=== PATIENT | female | born 1960 | race African-American/Black ===

== ENCOUNTER 2016-08-31 10:29 | Emergency (ER) | payer SELFPAY ==
[2016-08-31 10:52] VITALS: BP 172/104
[2016-08-31] MEDS ORDERED: IBUPROFEN 800 MG TABLET PO ONE (10:55)
--- NOTE | 2016-08-31 10:55 | ER Document Report ---
ED Medical Screen (RME) - General Stated Complaint: RIGHT LEG PAIN Notes: Patient thinks she pulled a muscle in her posterior right thigh on August 09. It is still bothering her. Pain radiates to her right hip and groin. I have greeted and performed a rapid initial assessment of this patient. A comprehensive ED assessment and evaluation of the patient, analysis of test results and completion of the medical decision making process will be conducted by additional ED providers. TRAVEL OUTSIDE OF THE [place] IN LAST 30 DAYS: No - Related Data Allergies/Adverse Reactions: No Known Allergies Allergy (Verified 08/31/16 10:52) Past Medical History - Past Medical History Cardiac Medical History: Reports: Hx Hypercholesterolemia, Hx Hypertension Past Surgical History: Reports: Hx Section - 3 - Immunizations Hx Diphtheria, Pertussis, Tetanus Vaccination: No Physical Exam - Vital signs Vitals: Temp Pulse Resp BP Pulse Ox 98.4 F 61 18 172/104 H 100 08/31/16 10:50 08/31/16 10:50 08/31/16 10:50 08/31/16 10:50 08/31/16 10:50 - Back Notes: No pain with palpation, but pain reproduced with squatting. Patient ambulates with limp. Course - Vital Signs Vital signs: Temp Pulse Resp BP Pulse Ox 98.4 F 61 18 172/104 H 100 08/31/16 10:50 08/31/16 10:50 08/31/16 10:50 08/31/16 10:50 08/31/16 10:50
--- NOTE | 2016-08-31 12:33 | ER Document Report ---
ED General - General Chief Complaint: Leg Pain Stated Complaint: RIGHT LEG PAIN Mode of Arrival: Ambulatory Information source: Patient Notes: 56-year-old female presents with complaints of right hip pain pain down to the right knee. Patient notes she lifts heavy objects, noticed the pain only occurs after she is working, when she is at rest her symptoms resolved. Patient denies any DVT PE risk factors denies any chest pain shortness breath difficulty breathing. TRAVEL OUTSIDE OF THE [place] 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 Onset/Duration: Persistent Quality of pain: Achy Severity: Mild Pain Level: 1 Associated symptoms: Body/muscle aches Exacerbated by: Denies Relieved by: Denies Similar symptoms previously: No Recently seen / treated by doctor: No - Related Data Allergies/Adverse Reactions: No Known Allergies Allergy (Verified 08/31/16 10:52) Past Medical History - Social History Smoking Status: Never Smoker Cigarette use (# per day): Yes Chew tobacco use (# tins/day): Yes - snuff Smoking Education Provided: No Frequency of alcohol use: Social Drug Abuse: None Family History: None Patient has suicidal ideation: No Patient has homicidal ideation: No - Past Medical History Cardiac Medical History: Reports: Hx Hypercholesterolemia, Hx Hypertension Renal/ Medical History: Denies: Hx Peritoneal Dialysis Past Surgical History: Reports: Hx Section - 3 - Immunizations Hx Diphtheria, Pertussis, Tetanus Vaccination: No Review of Systems - Review of Systems Notes: REVIEW OF SYSTEMS: CONSTITUTIONAL : Denies fever, chills, or sweats. Denies recent illness. EENT: Denies eye, ear, throat, or mouth pain or symptoms. Denies nasal or sinus congestion or discharge. Denies throat, tongue, or mouth swelling or difficulty swallowing. CARDIOVASCULAR: Denies chest pain. Denies palpitations or racing or irregular heart beat. Denies ankle edema. RESPIRATORY: Denies cough, cold, or chest congestion. Denies shortness of breath, difficulty breathing, or wheezing. GASTROINTESTINAL: Denies abdominal pain or distention. Denies nausea, vomiting , or diarrhea. Denies blood in vomitus, stools, or per rectum. Denies black, tarry stools. Denies constipation. GENITOURINARY: Denies difficulty urinating, painful urination, burning, frequency, blood in urine, or discharge. FEMALE GENITOURINARY: Denies vaginal bleeding, heavy or abnormal periods, irregular periods. Denies vaginal discharge or odor. MUSCULOSKELETAL: Right hip pain and achiness SKIN: Denies rash, lesions or sores. HEMATOLOGIC : Denies easy bruising or bleeding. LYMPHATIC: Denies swollen, enlarged glands. NEUROLOGICAL: Denies confusion or altered mental status. Denies passing out or loss of consciousness. Denies dizziness or lightheadedness. Denies headache. Denies weakness or paralysis or loss of use of either side. Denies problems with gait or speech. Denies sensory loss, numbness, or tingling. Denies seizures. PSYCHIATRIC: Denies anxiety or stress. Denies depression, suicidal ideation, or homicidal ideation. ALL OTHER SYSTEMS REVIEWED AND NEGATIVE. Dictation was performed using [employer] voice recognition software PHYSICAL EXAMINATION: GENERAL: Well-appearing, well-nourished and in no acute distress. HEAD: Atraumatic, normocephalic. EYES: Pupils equal round and reactive to light, extraocular movements intact, conjunctiva are normal. ENT: Nares patent, oropharynx clear without exudates. Moist mucous membranes. NECK: Normal range of motion, supple without lymphadenopathy LUNGS: Breath sounds clear to auscultation bilaterally and equal. No wheezes rales or rhonchi. HEART: Regular rate and rhythm without murmurs ABDOMEN: Soft, nontender, nondistended abdomen. No guarding, no rebound. No masses appreciated. Female : deferred Musculoskeletal: Normal range of motion, no pitting or edema. No cyanosis. NEUROLOGICAL: Cranial nerves grossly intact. Normal speech, normal gait. Normal sensory, motor exams PSYCH: Normal mood, normal affect. SKIN: Warm, Dry, normal turgor, no rashes or lesions noted. Physical Exam - Vital signs Vitals: Temp Pulse Resp BP Pulse Ox 98.4 F 61 18 172/104 H 100 08/31/16 10:50 08/31/16 10:50 08/31/16 10:50 08/31/16 10:50 08/31/16 10:50 Course - Re-evaluation Re-evalutation: 08/31/16 12:31 Patient has no edema, notes the pain is on palpation. And movement. Patient will be treated with steroids and anti-inflammatories denies any medication reactions or concerns regarding side effects Otherwise patient looks well is in no distress After performing a Medical Screening Examination, I estimate there is LOW risk for EXPANDING OR RUPTURED ABDOMINAL AORTIC ANEURYSM, CAUDA EQUINA SYNDROME, EPIDURAL MASS LESION, or HERNIATED DISK CAUSING SEVERE SPINAL STENOSIS, thus I consider the discharge disposition reasonable. The patient and I have discussed the diagnosis and risks, and we agree with discharging home and close follow-up. We also discussed returning to the Emergency Department immediately if new or worsening symptoms occur with the understanding that symptoms and presentations can change. We have discussed the symptoms which are most concerning (e.g., saddle anesthesia, urinary or bowel incontinence or retention , changing or worsening pain) that necessitate immediate return. - Vital Signs Vital signs: Temp Pulse Resp BP Pulse Ox 98.4 F 61 18 172/104 H 100 08/31/16 10:50 08/31/16 10:50 08/31/16 10:50 08/31/16 10:50 08/31/16 10:50 Discharge - Discharge Clinical Impression: Right hip pain, muscle skeletal pain Condition: Stable Disposition: HOME, SELF-CARE Instructions: Myalagia (Muscle Pain) ([facility]) Prescriptions: Naproxen 500 mg PO BID #20 tablet Prednisone [Deltasone 20 mg Tablet] 3 tab PO DAILY 5 Days Forms: Return to Work Referrals: CORY WOOTEN MD [Primary Care Provider] - Follow up tomorrow
== END 2016-08-31 12:47 | disposition home or self-care (01) ==
LOC: ER 10:29
DX: M25.551 Pain in right hip (principal); Z72.0 Tobacco use; I10 Essential (primary) hypertension
CPT/HCPCS: 99283

== ENCOUNTER 2016-09-11 18:18 | Emergency (ER) | payer SELFPAY ==
--- NOTE | 2016-09-11 19:25 | ER Document Report ---
HPI - HPI Patient complains to provider of: left foot pain Onset: Yesterday Onset/Duration: Gradual Quality of pain: Throbbing Pain Level: 2 Context: 56-year-old female developed a spontaneous dorsal proximal foot pain when she walks. No injury. No swelling. Associated Symptoms: None Exacerbated by: Walking Relieved by: Denies Similar symptoms previously: No Recently seen / treated by doctor: No - ROS ROS below otherwise negative: Yes Systems Reviewed and Negative: Yes All other systems reviewed and negative - REPRODUCTIVE Reproductive: DENIES: : - DERM Skin Color: Normal Past Medical History - General Information source: Patient - Social History Smoking Status: Never Smoker Frequency of alcohol use: None Drug Abuse: None Lives with: Family Family History: None Patient has suicidal ideation: No Patient has homicidal ideation: No - Past Medical History Cardiac Medical History: Reports: Hx Hypercholesterolemia, Hx Hypertension Renal/ Medical History: Denies: Hx Peritoneal Dialysis Past Surgical History: Reports: Hx Section - 3 - Immunizations Hx Diphtheria, Pertussis, Tetanus Vaccination: No Vertical Provider Document - CONSTITUTIONAL Agree With Documented VS: Yes Exam Limitations: No Limitations - INFECTION CONTROL TRAVEL OUTSIDE OF THE [place] IN LAST 30 DAYS: No - HEENT HEENT: Normocephalic - NECK Neck: Supple - RESPIRATORY O2 Sat by Pulse Oximetry: 99 - MUSCULOSKELETAL/EXTREMETIES Musculoskeletal/Extremeties: MAEW, FROM, Non-Tender, No Edema. negative: Eccymosis - NEURO Level of Consciousness: Awake, Alert, Appropriate - DERM Integumentary: Warm, Dry, No Rash Course - Re-evaluation Re-evalutation: 09/11/16 20:12 Preliminary x-ray is negative - Vital Signs Vital signs: Temp Pulse Resp BP Pulse Ox 97.6 F 80 18 150/104 H 99 09/11/16 18:36 09/11/16 18:36 09/11/16 18:36 09/11/16 18:36 09/11/16 18:36 Procedures - Immobilization Left Foot Time completed: 20:20 Immobilizer type: Ryan wrap Performed by: PCT Post-Proc Neuro Vasc Exam: Normal Alignment checked and good: Yes Discharge - Discharge Clinical Impression: left foot pain Condition: Good Disposition: HOME, SELF-CARE Instructions: Myalagia (Muscle Pain) ([facility]), Arthralgia ([facility]), Acetaminophen, Use of [id number]-[id number] Ibuprofen ([facility]), Ryan Wrap ([facility]) Additional Instructions: see your doctor for follow up if persists ryan wrap for comfort to er if worse preliminary xray report is negative. Please complete the patient satisfaction survey if you get one, and return it.. If you do not receive a survey, then you can go to the [facility] website, [email or web address] and place your comments about your very good care. Thank you very much. It was a pleasure being your medical provider today. Forms: Return to Work Referrals: [facility] [Primary Care Provider] - Follow up as needed
--- NOTE | 2016-09-11 20:12 | ER Document Report ---
HPI - HPI Pain Level: 2 - CARDIOVASCULAR Cardiovascular: DENIES: Chest pain - REPRODUCTIVE Reproductive: DENIES: : - DERM Skin Color: Normal Past Medical History - General Information source: Patient - Social History Smoking Status: Never Smoker Chew tobacco use (# tins/day): No Frequency of alcohol use: None Drug Abuse: None Lives with: Family Family History: None Patient has suicidal ideation: No Patient has homicidal ideation: No - Past Medical History Cardiac Medical History: Reports: Hx Hypercholesterolemia, Hx Hypertension Renal/ Medical History: Denies: Hx Peritoneal Dialysis Past Surgical History: Reports: Hx Section - 3 - Immunizations Hx Diphtheria, Pertussis, Tetanus Vaccination: No Vertical Provider Document - INFECTION CONTROL TRAVEL OUTSIDE OF THE [place] IN LAST 30 DAYS: No - RESPIRATORY O2 Sat by Pulse Oximetry: 99 Course - Vital Signs Vital signs: Temp Pulse Resp BP Pulse Ox 97.6 F 80 18 142/88 H 99 09/11/16 18:36 09/11/16 18:36 09/11/16 18:36 09/11/16 19:34 09/11/16 20:11
[2016-09-11 20:46] VITALS: BP 151/88
== END 2016-09-11 20:47 | disposition home or self-care (01) ==
LOC: ER 18:18
DX: M79.672 Pain in left foot (principal); E78.00 Pure hypercholesterolemia, unspecified; I10 Essential (primary) hypertension
CPT/HCPCS: 99283

== ENCOUNTER → 2017-11-22 | Outpatient (CLI) | payer OTHER ==
[2017-11-22 10:14] LABS: ABSOLUTE EOSINOPHILS # (AUTO) 0.1 10^3/uL (0.0-0.6); ABSOLUTE LYMPHOCYTES (AUTO) 1.1 10^3/uL (0.5-4.7); ABSOLUTE MONOCYTES (AUTO) 0.3 10^3/uL (0.1-1.4); ABSOLUTE NEUT (AUTO) 2.4 10^3/uL (1.7-8.2); BASOPHILS % (AUTO) 0.2 % (0-2); EOSINOPHILS % (AUTO) 3.7 % (0-6); HEMATOCRIT 39.4 % (36.0-47.0); HEMOGLOBIN 12.8 g/dL (12.0-15.5); LYMPHOCYTES % (AUTO) 27.9 % (13-45); MEAN CORPUSCULAR HGB CONC 32.6 g/dL (32.0-36.0); MEAN CORPUSCULAR VOLUME 92 fl (80-97); MONOCYTES % (AUTO) 8.6 % (3-13); PLATELET COUNT 253 10^3/uL (150-450); RED BLOOD COUNT 4.27 10^6/uL (3.72-5.28); RED CELL DISTRIBUTION WIDTH 13.4 % (11.5-14.0); SEGMENTED NEUTROPHILS % (AUTO) 59.6 % (42-78); TOTAL CELLS COUNTED % (AUTO) 100 %; WHITE BLOOD COUNT 4.1 10^3/uL (4.0-10.5)
[2017-11-22 10:56] LABS: ALANINE AMINOTRANSFERASE 30 U/L (9-52); ALKALINE PHOSPHATASE 56 U/L (38-126); ANION GAP 7 (5-19); ASPARTATE AMINO TRANSFERASE 26 U/L (14-36); BILIRUBIN,DIRECT 0.3 mg/dL (0.0-0.4); BILIRUBIN,TOTAL 0.6 mg/dL (0.2-1.3); BLOOD UREA NITROGEN 14 mg/dL (7-20); CALCIUM 9.7 mg/dL (8.4-10.2); CARBON DIOXIDE 30 mmol/L (22-30); CHLORIDE 106 mmol/L (98-107); CHOLESTEROL 209.02 mg/dL (0-200); GLUCOSE 93 mg/dL (75-110); POTASSIUM 5.5 mmol/L (3.6-5.0); SODIUM 143.4 mmol/L (137-145); TOTAL PROTEIN 6.6 g/dL (6.3-8.2); TRIGLYCERIDES 169 mg/dL (<150)
[2017-11-22 11:07] LABS: DIRECT LDL 112 mg/dL (<100)
[2017-11-22 11:10] LABS: VLDL CHOLESTEROL 33.8 mg/dL (10-31)
== END ==
LOC: CCC 08:53
DX: Z00.00 Encounter for general adult medical examination without abnormal findings (principal); I10 Essential (primary) hypertension
CPT/HCPCS: 36415; 80053; 80061; 83036; 84443; 85025